=== PATIENT | female | born 1980 | race Caucasian/White ===

== ENCOUNTER 2017-06-10 20:12 | Emergency (ER) | payer OTHER ==
[~2017-06-10] VITALS: Ht 172.7 cm; Wt 111.1 kg
[2017-06-10 20:18] VITALS: BP 139/86
--- NOTE | 2017-06-10 21:10 | NUR ---
PATIENT PRESENTS TO ED WITH CELLULITIS ON HER BOTH ARMS WITH REDNESS ,SWELLING AND PAIN , S/P BUGBITE 2 DAYS AGO PT DENIES N/V/D; SKIN IS PINK/WARM/DRY; AAOX4 WITH EVEN AND STEADY GAIT; LUNGS CLEAR BL; HR EVEN AND REGULAR; PT DENIES ANY FEVER, CP, SOB, OR COUGH AT THIS TIME; PATIENT STATES PAIN OF 6/10 AT THIS TIME; VSS; PATIENT POSITIONED FOR COMFORT; HOB ELEVATED; BEDRAILS UP X2; BED DOWN. ER MD MADE AWARE OF PT STATUS.
[2017-06-10] MEDS ORDERED: methylPREDNISolone SS 40 MG in WATER STERILE 1 ML IM ONE (21:20)
[2017-06-10] MEDS ORDERED: ALBUTEROL 0.083% 2.5 MG/3 ML NEBU INH ONE (21:20)
[2017-06-10 22:14] VITALS: BP 115/68
--- NOTE | 2017-06-10 22:14 | NUR ---
Patient discharged with v/s stable. Written and verbal after care instructions given and explained. Patient verbalized understanding. Ambulatory with steady gait. All questions addressed prior to discharge. Advised to follow up with PMD.
== END 2017-06-10 22:14 | disposition home or self-care (01) ==
LOC: MED 20:12
DX: S40.861A Insect bite (nonvenomous) of right upper arm, initial encounter (principal); L03.113 Cellulitis of right upper limb; J45.901 Unspecified asthma with (acute) exacerbation; Z88.6 Allergy status to analgesic agent; Z88.5 Allergy status to narcotic agent; W57.XXXA Bitten or stung by nonvenomous insect and other nonvenomous arthropods, initial encounter; Y93.89 Activity, other specified; Y92.89 Other specified places as the place of occurrence of the external cause; Y99.8 Other external cause status
CPT/HCPCS: 96372; 99283; J2920; J7613; 94640

== ENCOUNTER 2018-04-11 01:00 | Emergency (ER) | payer OTHER ==
[~2018-04-11] VITALS: Ht 172.7 cm; Wt 115.2 kg
[2018-04-11 01:06] VITALS: BP 109/62
--- NOTE | 2018-04-11 01:10 | NUR ---
PT TRIAGED AND SENT TO ED ANAYELIBYSAVI AWARE OF PT STATUS
--- NOTE | 2018-04-11 01:40 | NUR ---
PT TO ER BED 7.
--- NOTE | 2018-04-11 01:45 | NUR ---
PT C/O REDDENED RASH TO BL ANKLES STARTING YESTERDAY WHEN AT [facility]. REDDENED, NON RAISED, NO OPEN SKIN BLEEDING OR D/C, NON BLANCHABLE, RASH NOTED TO BL LOWER LEGS/ANKLE AREA. PT STATES RASH STARTED SMALL RED CIRCLES AND PROGRESSIVELY HAS GOTTEN WORSE TRHOUGH OUT DAY. PT STATES SHE HAD BURNING PAIN TO RASH EARLIER BUT SINCE SHE HAS BEEN LAYING DOWN IT HAS LESSENED. PMH ASTHMA, ALLERGY TO NORCO
--- NOTE | 2018-04-11 02:49 | NUR ---
DR CERVANTES AT BEDSIDE EVALUATING PT.
[2018-04-11] MEDS ORDERED: cefTRIAXone 2,000 MG in DEXTROSE 5% 100 ML IV ONE (03:05)
[2018-04-11] MEDS ORDERED: VANCOMYCIN 1,000 MG in DEXTROSE 5% 250 ML IV ONE (03:05)
[2018-04-11 03:31] LABS: BASOPHILS % (AUTO) 0.3 % (0.0-2.0); EOSINOPHILS # (AUTO) 0.2 K/uL (0-0.4); EOSINOPHILS % (AUTO) 2.5 % (0.0-4.0); HEMATOCRIT 38.2 % (36-48); HEMOGLOBIN 12.9 g/dL (12.0-16.0); LYMPHOCYTES % (AUTO) 33.9 % (20.5-51.1); MEAN CORPUSCULAR HEMOGLOBIN 28 pg (27-31); MEAN CORPUSCULAR HGB CONC 34 g/dL (33-37); MEAN CORPUSCULAR VOLUME 84.2 fL (80-94); MONOCYTES # (AUTO) 0.6 K/uL (0.8-1.0); MONOCYTES % (AUTO) 6.7 % (1.7-9.3); NEUTROPHILS % (AUTO) 56.6 % (42.2-75.2); PLATELET COUNT (AUTO) 258 K/uL (140-450); RED BLOOD CELL COUNT(AUTO) 4.54 MIL/uL (4.20-5.40); RED CELL DISTRIBUTION WIDTH 12.8 % (11.6-13.7); WHITE BLOOD COUNT (AUTO) 8.9 K/uL (4.8-10.8)
[2018-04-11] MEDS ORDERED: cefTRIAXone 2,000 MG VIAL ONE (03:37)
[2018-04-11] MEDS ORDERED: VANCOMYCIN 1,000 MG VIAL ONE (03:37)
[2018-04-11 03:44] LABS: PROTHROMBIN TIME 9.9 secs (10.8-13.4)
--- NOTE | 2018-04-11 04:00 | NUR ---
PT SLEEPING IN BED, VSS, WILL CONTINUE TO MONITOR.
--- NOTE | 2018-04-11 05:00 | NUR ---
PT SLEEPING IN BED, AWAKE TO VERBAL STIMULI, COMFORT MEASURES MET AT THIS TIME, WILL CONTINUE TO MONITOR.
--- NOTE | 2018-04-11 05:32 | NUR ---
PENDING D/C PAPERWORK FROM DR CERVANTES.
[2018-04-11 06:09] VITALS: BP 130/72
== END 2018-04-11 06:09 | disposition home or self-care (01) ==
LOC: MED 01:00
DX: R21 Rash and other nonspecific skin eruption (principal); Z88.6 Allergy status to analgesic agent; Z88.5 Allergy status to narcotic agent
CPT/HCPCS: 36415; 83605; 85025; 85610; 85730; 87040; 96365; 96367; 99284; J0696; J3370

== ENCOUNTER 2021-04-14 22:35 | Emergency (ER) | payer OTHER ==
[~2021-04-14] VITALS: Ht 172.7 cm; Wt 117.0 kg
[2021-04-14 22:41] VITALS: BP 132/90
[2021-04-14] MEDS ORDERED: ALBUTEROL 0.083% 2.5 MG/3 ML NEBU INH ONE (23:05)
[2021-04-14] MEDS ORDERED: predniSONE 20 MG TAB PO ONE (23:05)
--- NOTE | 2021-04-14 23:27 | NUR ---
CONFIRMED RT TO PROVIDE BREATHING TX IN TENT.
--- NOTE | 2021-04-14 23:30 | NUR ---
CONFIRMED WITH MD WEIR, HOLD ON IV, PULSE OX, PERSONNEL MANAGER, OXYGEN ORDERS. OK TO RECIEVE BREATHING TX IN TENT.
--- NOTE | 2021-04-14 23:37 | NUR ---
RT OUTSIDE IN TENT FOR BREATHING TX.
[2021-04-15] MEDS ORDERED: PRED20TA5 PO (00:26)
[2021-04-15] MEDS ORDERED: ALBU0.0912 INH (00:26)
--- NOTE | 2021-04-15 00:30 | NUR ---
PT REPORTS "I FEEL A LITTLE BETTER" POST BREATHING TX. NO NOTED COUGHING AT THIS TIME. RESPIRATIONS EVEN AND UNLABORED.
[2021-04-15 00:32] VITALS: BP 120/55
--- NOTE | 2021-04-15 00:32 | NUR ---
Patient discharged with v/s stable. Written and verbal after care instructions given and explained. Patient alert, oriented and verbalized understanding of instructions. Ambulatory with steady gait. All questions addressed prior to discharge. ID band removed. Patient advised to follow up with PMD. Rx of PROVENTIL HFA MDI AND DELTASONE given. Patient educated on indication of medication including possible reaction and side effects. Opportunity to ask questions provided and answered.
== END 2021-04-15 00:32 | disposition home or self-care (01) ==
LOC: MED 22:35
DX: J45.901 Unspecified asthma with (acute) exacerbation (principal); Z88.5 Allergy status to narcotic agent; Z88.6 Allergy status to analgesic agent; Z79.899 Other long term (current) drug therapy
CPT/HCPCS: 94640; 99283; J7512; J7613

== ENCOUNTER 2021-04-18 19:11 | Emergency (ER) | payer OTHER ==
[~2021-04-18] VITALS: Ht 172.7 cm; Wt 116.1 kg
[~2021-04-18 19:11] MED LIST: ALBU0.0912 INH; PRED20TA5 PO
[2021-04-18 19:20] VITALS: BP 138/92
--- NOTE | 2021-04-18 19:20 | NUR ---
TO BED AMBULATORY
[2021-04-18] MEDS ORDERED: predniSONE 20 MG TAB PO ONE (19:35)
[2021-04-18] MEDS ORDERED: ALBUTEROL 0.083% 2.5 MG/3 ML NEBU INH ONE ×3 (19:35→22:05)
[2021-04-18] MEDS ORDERED: ALBUTEROL SULFATE/IPRATROPIU 3 ML SOL IH ONE ×3 (19:35→22:05)
--- NOTE | 2021-04-18 19:45 | NUR ---
attempted to call RT-- no answer at this time
--- NOTE | 2021-04-18 19:53 | NUR ---
attempted to call RT-- no answer at this time
--- NOTE | 2021-04-18 19:56 | NUR ---
ASTHMA ATTACK , COUGH, WHEEZING SINCE SATURDAY BUT OVERALL HAVE BEEN HAVING ASTHMA ATTACKS THE LAST 15 DAYS. COVID TEST DONE LAST APR 11 WITH NEGATIVE RESULT. PATIENT HAS SOB, DIFFICULTY BREATHING-- MEDICATED OF PREDNISONE 60MG, ALBUTEROL USING 3X-4X A DAY. PATIENT LUNG SOUNDS ARE DIMINISHED THROUGHOUT LUNG GONZALEZ. PATIENT ALSO HAS COUGH AND TIGHTNESS OF THE CHEST DUE TO DIFFICULTY BREATHING. PATIENT IS NOT VACCINATED. AAO. VSS. PMH: ASTHMA, FINGER SURGERY, GALLBLADDER REMOVAL ALLERGIES: VICODINE
--- NOTE | 2021-04-18 20:04 | NUR ---
ERMD at bedside for examination of patient
--- NOTE | 2021-04-18 20:08 | NUR ---
attempted to call RT-- no answer at this time
--- NOTE | 2021-04-18 20:24 | NUR ---
xray at bedside
--- NOTE | 2021-04-18 20:32 | NUR ---
Respiratory Therapist at bedside for respiratory intervention.
--- NOTE | 2021-04-18 20:59 | NUR ---
Dr. Urias examining patient.
--- NOTE | 2021-04-18 22:03 | NUR ---
Respiratory Therapist at bedside for respiratory intervention.
[2021-04-18] MEDS ORDERED: AZIT250T4 PO (22:08)
[2021-04-18 22:36] VITALS: BP 142/90
--- NOTE | 2021-04-18 22:36 | NUR ---
Patient discharged with v/s stable. Written and verbal after care instructions given and explained. Patient alert, oriented and verbalized understanding of instructions. Ambulatory with steady gait. All questions addressed prior to discharge. ID band removed. Patient advised to follow up with PMD. Rx of AZITHROMYCIN AND DUONEB given. Patient educated on indication of medication including possible reaction and side effects. Opportunity to ask questions provided and answered.
[2021-04-19] MEDS ORDERED: ALBU3SOL83 IH ×2 (03:00→03:02)
== END 2021-04-18 22:36 | disposition home or self-care (01) ==
LOC: MED 19:11
DX: J45.901 Unspecified asthma with (acute) exacerbation (principal); Z88.6 Allergy status to analgesic agent; Z88.5 Allergy status to narcotic agent
CPT/HCPCS: 71045; 94640; 99285; J7512; J7613

== ENCOUNTER 2023-02-19 20:42 | Emergency (ER) | payer OTHER ==
[~2023-02-19] VITALS: Ht 170.2 cm; Wt 116.6 kg
[~2023-02-19 20:42] MED LIST changes: +ALBU3SOL83 IH; +AZIT250T4 PO
[2023-02-19 20:53] VITALS: BP 143/71
--- NOTE | 2023-02-19 20:59 | NUR ---
pt ambulatory to [facility] steady gait
[2023-02-19] MEDS ORDERED: NACL 0.9% 1,000 ML IV ONE (21:25)
[2023-02-19] MEDS ORDERED: KETOROLAC 30 MG/ML VIAL IVP ONE (21:25)
[2023-02-19 21:27] LABS: BASOPHILS % (AUTO) 0.4 % (0.0-2.0); EOSINOPHILS # (AUTO) 0.2 K/uL (0-0.4); EOSINOPHILS % (AUTO) 2.2 % (0.0-4.0); HEMATOCRIT 36.4 % (36-48); HEMOGLOBIN 12.7 g/dL (12.0-16.0); LYMPHOCYTES # (AUTO) 3.3 K/uL (2.5-16.5); LYMPHOCYTES % (AUTO) 32.3 % (20.5-51.1); MEAN CORPUSCULAR HEMOGLOBIN 30 pg (27-31); MEAN CORPUSCULAR HGB CONC 35 g/dL (33-37); MEAN CORPUSCULAR VOLUME 85.1 fL (80-94); MONOCYTES # (AUTO) 0.6 K/uL (0.8-1.0); MONOCYTES % (AUTO) 6.2 % (1.7-9.3); NEUTROPHILS % (AUTO) 58.9 % (42.2-75.2); PLATELET COUNT (AUTO) 245 K/uL (140-450); RED BLOOD CELL COUNT(AUTO) 4.27 MIL/uL (4.20-5.40); RED CELL DISTRIBUTION WIDTH 12.7 % (11.6-13.7); WHITE BLOOD COUNT (AUTO) 10.1 K/uL (4.8-10.8)
[2023-02-19 21:34] LABS: BILIRUBIN,URINE NEGATIVE (NEGATIVE); BLOOD, URINE TRACE-I (NEGATIVE); COLOR,URINE YELLOW (YELLOW); LEUKOCYTE ESTERASE ,URINE 2+ (NEGATIVE); NITRITE, URINE NEGATIVE (NEGATIVE); UGLUCOSE NEGATIVE (NEGATIVE)
[2023-02-19 21:45] LABS: ALBUMIN 3.7 g/dL (3.4-5.0); ANION GAP 11.7 (8-16); CREATININE 0.7 mg/dL (0.6-1.3); POTASSIUM 3.7 mmol/L (3.5-5.1); TOTAL BILIRUBIN 0.4 mg/dL (0.0-1.0)
[2023-02-19 21:45] LABS: APPEARANCE,URINE HAZY (CLEAR)
[2023-02-19 21:57] LABS: RBC,URINE 0-5 /HPF (0-5)
--- NOTE | 2023-02-19 22:03 | NUR ---
PATIENT RESTING IN BED, A/OX4, CHEST RISE AND FALL SYMMETRICAL, NO S/S OF DISTRESS, ON MONITOR.
--- NOTE | 2023-02-19 22:04 | NUR ---
PT TAKEN TO BED 4
[2023-02-19] MEDS ORDERED: CEPH-588 PO (22:13)
[2023-02-19] MEDS ORDERED: NAPR-1704 PO (22:15)
[2023-02-19] MEDS ORDERED: cefTRIAXone 1,000 MG VIAL ONE (22:18)
[2023-02-19] MEDS ORDERED: ONDANSETRON 4 MG/2 ML VIAL IVP ONE (22:45)
--- NOTE | 2023-02-19 23:20 | NUR ---
PATIENT RESTING IN BED, A/OX4, CHEST RISE AND FALL SYMMETRICAL, NO C/O PAIN OR S/S OF DISTRESS, ON MONITOR.
[2023-02-19 23:31] VITALS: BP 132/85
== END 2023-02-19 23:31 | disposition home or self-care (01) ==
LOC: MED 20:42
DX: N12 Tubulo-interstitial nephritis, not specified as acute or chronic (principal); D73.89 Other diseases of spleen; J45.909 Unspecified asthma, uncomplicated; I10 Essential (primary) hypertension; Z88.5 Allergy status to narcotic agent; Z79.899 Other long term (current) drug therapy; Z90.49 Acquired absence of other specified parts of digestive tract; Z98.890 Other specified postprocedural states
CPT/HCPCS: 36415; 74176; 80053; 81001; 81025; 83605; 85025; 87040; 87086; 96361; 96365; 96375; 99285; J0696; J1885; J2405; J7030